=== PATIENT | female | born 1950 | race African-American/Black ===

== ENCOUNTER 2016-12-25 03:46 | Emergency (ER) | payer MEDICARE, BC ==
[~2016-12-25] VITALS: Ht 160 cm; Wt 83.5 kg
== END 2016-12-25 05:56 | disposition home or self-care (01) ==
LOC: CED 03:46
DX: K56.41 Fecal impaction (principal); I10 Essential (primary) hypertension; Z90.710 Acquired absence of both cervix and uterus
CPT/HCPCS: 99283